=== PATIENT | female | born 1995 | race African-American/Black ===

== ENCOUNTER 2020-03-25 17:11 | Emergency (ER) | payer MEDICAID, SELFPAY ==
--- NOTE | 2020-03-25 | US_ITS ---
EXAMINATION: ULTRASOUND PELVIS, COMPLETE CLINICAL INFORMATION: Lower abdominal pain, worst in the right lower quadrant and suprapubic region. Vaginal bleeding. COMPARISON: None TECHNIQUE: Transabdominal and transvaginal imaging of the pelvis was performed utilizing grayscale and color Doppler technique with spectral analysis. FINDINGS: Uterus normal in size measuring 8.5 x 4.7 x 6.2 cm. Interstitial signature is 0.4 cm and homogeneous. There is a 1.3 x 1.2 x 1 cm fibroid within the anterior uterine fundus. Ovaries normal in size and appearance measuring 3.2 x 2.5 x 2.7 cm on the right 3.4 x 2.8 x 2.4 cm on the left. Physiologic follicles present bilaterally, with a 1.6 cm follicle within the left ovary. Normal internal venous waveforms present within each ovary. US/US transvaginal IMPRESSION: No evidence of ovarian torsion. Unremarkable sonographic survey ovaries. Single 1.2 cm anterior uterine fundal fibroid. Endometrial signature is normal in appearance.
[2020-03-25 20:04] VITALS: BP 144/82; PULSE 72; RESP 15; TEMP 36.6; O2SAT 99; BMI 44.7
[2020-03-25 20:34] LABS: MANUAL DIFF FLAG NO
[2020-03-25 20:36] LABS: Basophils Percent Auto 0.4 % (0-2); Eosinophils Absolute Auto 0.2 X10*3/uL (0.0-0.4); Eosinophils Percent Auto 1.9 % (0-4); Hematocrit 38.1 % (37-47); Hemoglobin 12.2 g/dl (12.0-16.0); Imm Gran Abs Auto 0.03 X10*3/uL (0.00-0.03); Imm Gran Pct Auto 0.3 % (0.0-0.4); Lymphocytes Absolute Auto 3.4 X10*3/uL (1.2-4.9); Lymphocytes Percent Auto 34.3 % (20-40); Mean Corpuscular Hemoglobin 31.7 pg (27.0-33.0); Mean Platelet Volume 10.9 fL (9.4-12.3); Monocytes Absolute Auto 0.7 X10*3/uL (0.1-1.2); Monocytes Percent Auto 7.1 % (2-11); Neutrophils Absolute Auto 5.5 X10*3/uL (2.0-8.3); Platelet Count 369 X10*3/uL (160-400); Red Blood Count 3.85 X10*6/uL (4.20-5.50); Red Cell Distribution Width 11.6 % (11.0-16.0); White Blood Count 9.8 X10*3/uL (4.8-10.8)
[2020-03-25 20:45] LABS: Appearance Urine HAZY; Color Urine YELLOW; Glucose Urine UA NEG (NEG); Leukocyte Esterase Urine NEG (NEG); Nitrite Urine NEG (NEG); PH 5.5 (5.0-8.0); Specific Gravity - Urine 1.025 (1.005-1.025); Urine Blood 3+ (NEG); Urine Ketones NEG (NEG); Urine Protein TRACE MG/DL (NEG-TRACE)
[2020-03-25 20:51] LABS: RBC Urine TNTC /HPF (0); Squamous Epithelial Cell Urine 3+ /LPF; WBC Urine 0-2 /HPF (0-4)
[2020-03-25 20:55] LABS: Anion Gap 14 (12-20); Blood Urea Nitrogen 11 mg/dL (9-16); Calcium 9.2 mg/dL (8.4-10.2); Carbon Dioxide 26 mmol/L (22-29); Chloride 104 mmol/L (96-108); Creatinine Clr Calc Pharmacy 184.5; Estimated Glomerular Filt Rate > 60; Glucose Random 89 mg/dL (60-115); Potassium 4.5 mmol/l (3.3-5.1); Sodium 139 mmol/L (135-145)
[2020-03-25 20:56] VITALS: BP 118/53; PULSE 69; RESP 16; O2SAT 100
--- NOTE | 2020-03-25 21:01 | US_ITS ---
EXAMINATION: ULTRASOUND PELVIS, COMPLETE CLINICAL INFORMATION: Lower abdominal pain, worst in the right lower quadrant and suprapubic region. Vaginal bleeding. COMPARISON: None TECHNIQUE: Transabdominal and transvaginal imaging of the pelvis was performed utilizing grayscale and color Doppler technique with spectral analysis. FINDINGS: Uterus normal in size measuring 8.5 x 4.7 x 6.2 cm. Interstitial signature is 0.4 cm and homogeneous. There is a 1.3 x 1.2 x 1 cm fibroid within the anterior uterine fundus. Ovaries normal in size and appearance measuring 3.2 x 2.5 x 2.7 cm on the right 3.4 x 2.8 x 2.4 cm on the left. Physiologic follicles present bilaterally, with a 1.6 cm follicle within the left ovary. Normal internal venous waveforms present within each ovary. US/US pelvic complete IMPRESSION: No evidence of ovarian torsion. Unremarkable sonographic survey ovaries. Single 1.2 cm anterior uterine fundal fibroid. Endometrial signature is normal in appearance.
[2020-03-25 21:02] LABS: HCG Quantitative < 2 mIU/mL
--- NOTE | 2020-03-25 21:08 | ED_ITS ---
HPI - Female Genitourinary General Chief complaint: Vaginal Bleeding Stated complaint: Vaginal bleeding Time Seen by Provider: 03/25/20 17:18 Source: patient Mode of arrival: ambulatory History of Present Illness HPI Narrative: 25-year-old female with a past medical history of anemia, borderline diabetes, presenting to the ED complaining of heavy vaginal bleeding with clots x3 days. Reports associated lower abdominal/pelvic pain, lighth eadedness, and vaginal discharge. Is sexually active with 1 partner, denies concern for STIs. Denies taking anticoagulation. Denies nausea, vomiting, diarrhea, CP/SOB. LMP unknown as had Nexplanon removed in 2019 and irregular periods since MD elicited complaint: vaginal bleeding, vaginal discharge and pelvic pain Related Data Allergies Allergy/AdvReac Type Severity Reaction Status Date / Time bee pollen [BEE STINGS] Allergy Severe ANAPHYLAXIS Verified 03/25/20 20:20 poison oak extract Allergy Intermediate HIVES Verified 03/25/20 20:20 [POISON OAK] bee sting Allergy Unknown Anaphylaxis Uncoded 03/25/20 20:20 Review of Systems Review of Systems: Constitutional: No Weight loss, No Fever, No Chills, +Fati sammi, No Malaise Cardiovascular: No Chest Pain, No SOB Respiratory: No Cough, No Sputum Gastrointestinal: No Nausea, No Vomiting, No Diarrhea, No Constipation, + Abdominal pain Genitourinary: + irregular vaginal bleeding, No Dysuria, No Urinary Frequency, No Hematuria, +vaginal discharge Musculoskeletal: No joint pain, No Myalgias, No Joint Swelling Skin: No Skin Lesions, No rash Neuro: +lightheadedness Yes all other systems are reviewed and are negative PMFSH Past Medical History Attestation statement: The following information was validated with the patient. Medical History (Updated 03/25/20 @ 23:06 by HEMA Lara) Anemia Borderline diabetes Social History Social History Alcohol intake: never Smoking Status: Never smoker Use of substances other than those prescribed or required for medical reasons: No Advance Directives: No Advance Directives Information Provided: No Physical Exam Vital Signs: Vital Signs: Last Vital Signs Temp 98 F 03/25/20 20:04 Pulse 69 03/25/20 20:56 Resp 16 03/25/20 20:56 BP 118/53 L 03/25/20 20:56 Pulse Ox 100 03/25/20 20:56 Body Mass Index 44.7 Const: General: cooperative and healthy appearing Orientation/consciousness: patient oriented x3 Limitations: no limitations HENMT: Head: Yes normal to inspection Ears: hearing grossly normal bilaterally General nose exam: Normal external nose present Face and sinus: Yes normal facial exam Eyes: General: appearance normal, both eyes and all related structures EOM: EOMs intact bilaterally Neck: Neck: Yes normal visual inspection and Yes no meningeal signs Resp: Effort & Inspection: normal respiratory effort Auscultation: clear to auscultation bilaterally, no rales, no rhonchi and no wheezes Cardio: Rate: regular rate Heart sounds: S1 normal heart sound present and S2 normal heart sound present GI: Inspection: Yes normal to inspection Palpation (GI): Soft to palpation, Tenderness to palpation present (GI) (suprapubic and R suprapubic region) in the RLQ, no guarding and not rigid : Other: No active hemorrhage, cleared with Q-tip External Female Exam: normal external appearance Speculum Exam - Cervix: Cervical os closed, Abnormal cervical discharge present (via Os) bloody and nontender Bimanual exam- vagina & uterus: No Cervical tenderness present Bimanual Exam- Adnexa, other: no masses and tender on the right Skin: Rashes: no rashes Wounds: no wounds Neuro: General: patient oriented x3, gait normal, tone normal, moves all extremities and no meningeal signs Gait exam (Neuro): Normal gait present Extrem: General: Yes normal to inspection Course Course Course Narrative: * H/H stable, HCG negative, labs otherwise unremarkable * UA w/blood not infected US pelvic complete IMPRESSION: No evidence of ovarian torsion. Unremarkable sonographic survey ovaries. Single 1.2 cm anterior uterine fundal fibroid. Endometrial signature is normal in appearance. * results discussed with patient, vital signs remain stable, she is nontoxic appearing. Appendicitis unlikely. Strict return precautions and worrisome signs and symptoms discussed. She verbalized understanding and feels safe for discharge. Believes she can get follow-up with her OBGYN this week MDM - Female Genitourinary MDM Narrative Medical decision making narrative: 25-year-old female with a past medical hist ory of anemia, borderline diabetes, presenting to the ED complaining of heavy vaginal bleeding with clots x3 days. Reports associated lower abdominal/pelvic pain, lightheadedness, and vaginal discharge. On exam VSS, NAD/nontoxic appearing, abdomen soft with RLQ/right suprapubic/lower abdominal tenderness, vaginal bleeding noted on pelvic with right adnexal tenderness. Concern for ectopic vs ovarian cyst/torsion. Appendicitis lower on ddx. Low concern for renal stone. Rule out UTI Plan: Labs, UA, , transvaginal ultrasound, reassess Lab Data Result diagrams: 03/25/20 20:24 03/25/20 20:24 Labs: Lab Results 03/25/20 03/25/20 03/25/20 Range/Units 20:18 20:24 20:24 WBC 9.8 (4.8-10.8) X10*3/uL RBC 3.85 L (4.20-5.50) X10*6/uL Hgb 12.2 (12.0-16.0) g/dl Hct 38.1 (37-47) % MCV 99.0 H (80-98) fL MCH 31.7 (27.0-33.0) pg MCHC 32.0 (31.0-35.0) g/dl RDW 11.6 (11.0-16.0) % Plt Count 369 (160-400) X10*3/uL MPV 10.9 (9.4-12.3) fL Immature Gran % (Auto) 0.3 (0.0-0.4) % Neut % (Auto) 56.0 (45-73) % Lymph % (Auto) 34.3 (20-40) % Pettis % (Auto) 7.1 (2-11) % Eos % (Auto) 1.9 (0-4) % Baso % (Auto) 0.4 (0-2) % Lymph # (Auto) 3.4 (1.2-4.9) X10*3/uL Pettis # (Auto) 0.7 (0.1-1.2) X10*3/uL Eos # (Auto) 0.2 (0.0-0.4) X10*3/uL Baso # (Auto) 0.0 (0.0-0.2) X10*3/uL Abs Immat Gran (auto) 0.03 (0.00-0.03) X10*3/uL Absolute Neuts (auto) 5.5 (2.0-8.3) X10*3/uL Absolute Nucleated RBC 0.000 (0.0-0.012) X10*3/uL Nucleated RBC % (auto) 0.0 (0.0-0.2) /100WBC Hold Blue Top SEE NOTE Sodium (135-145) mmol/L Potassium (3.3-5.1) mmol/l Chloride (96-108) mmol/L Carbon Dioxide (22-29) mmol/L Anion Gap (12-20) BUN (9-16) mg/dL Creatinine (0.5-1.4) mg/dL Estim Creat Clear Calc Estimated GFR Random Glucose (60-115) mg/dL Calcium (8.4-10.2) mg/dL Total Bilirubin (0.0-1.0) mg/dL Direct Bilirubin (0.0-0.5) mg/dL AST (5-31) U/L ALT (0-31) U/L Alkaline Phosphatase (39-117) U/L Total Protein (6.5-8.0) g/dL Albumin (3.5-5.0) g/dL Lipase (8-78) U/L Beta HCG, Quant mIU/mL Urine Color Urine Appearance Urine pH (5.0-8.0) Ur Specific [place] (1.005-1.025) Urine Protein (NEG-TRACE) MG/DL Urine Glucose (UA) (NEG) MG/DL Urine Ketones (NEG) MG/DL Urine Blood (NEG) Urine Nitrite (NEG) Ur Leukocyte Esterase (NEG) Urine RBC (0) /HPF Urine WBC (0-4) /HPF Ur Squamous Epith Cells /LPF Urine Bacteria /LPF Blood Type A Positive 03/25/20 03/25/20 Range/Units 20:24 20:24 WBC (4.8-10.8) X10*3/uL RBC (4.20-5.50) X10*6/uL Hgb (12.0-16.0) g/dl Hct (37-47) % MCV (80-98) fL MCH (27.0-33.0) pg MCHC (31.0-35.0) g/dl RDW (11.0-16.0) % Plt Count (160-400) X10*3/uL MPV (9.4-12.3) fL Immature Gran % (Auto) (0.0-0.4) % Neut % (Auto) (45-73) % Lymph % (Auto) (20-40) % Pettis % (Auto) (2-11) % Eos % (Auto) (0-4) % Baso % (Auto) (0-2) % Lymph # (Auto) (1.2-4.9) X10*3/uL Pettis # (Auto) (0.1-1.2) X10*3/uL Eos # (Auto) (0.0-0.4) X10*3/uL Baso # (Auto) (0.0-0.2) X10*3/uL Abs Immat Gran (auto) (0.00-0.03) X10*3/uL Absolute Neuts (auto) (2.0-8.3) X10*3/uL Absolute Nucleated RBC (0.0-0.012) X10*3/uL Nucleated RBC % (auto) (0.0-0.2) /100WBC Hold Blue Top Sodium 139 (135-145) mmol/L Potassium 4.5 (3.3-5.1) mmol/l Chloride 104 (96-108) mmol/L Carbon Dioxide 26 (22-29) mmol/L Anion Gap 14 (12-20) BUN 11 (9-16) mg/dL Creatinine 0.75 (0.5-1.4) mg/dL Estim Creat Clear Calc 184.5 Estimated GFR > 60 Random Glucose 89 (60-115) mg/dL Calcium 9.2 (8.4-10.2) mg/dL Total Bilirubin 0.5 (0.0-1.0) mg/dL Direct Bilirubin 0.2 (0.0-0.5) mg/dL AST 16 (5-31) U/L ALT 21 (0-31) U/L Alkaline Phosphatase 85 (39-117) U/L Total Protein 8.0 (6.5-8.0) g/dL Albumin 4.5 (3.5-5.0) g/dL Lipase 25 (8-78) U/L Beta HCG, Quant < 2 mIU/mL Urine Color YELLOW Urine Appearance HAZY Urine pH 5.5 (5.0-8.0) Ur Specific [place] 1.025 (1.005-1.025) Urine Protein TRACE (NEG-TRACE) MG/DL Urine Glucose (UA) NEG (NEG) MG/DL Urine Ketones NEG (NEG) MG/DL Urine Blood 3+ H (NEG) Urine Nitrite NEG (NEG) Ur Leukocyte Esterase NEG (NEG) Urine RBC TNTC H (0) /HPF Urine WBC 0-2 (0-4) /HPF Ur Squamous Epith Cells 3+ /LPF Urine Bacteria NONE /LPF Blood Type Discharge Plan Discharge Clinical Impression: Vaginal bleeding Patient Disposition: Home, Self-Care Instructions: Dysfunctional Uterine Bleeding (ED) Additional Instructions: Your blood work was reassuring today in the emergency department Your ultrasound did not show any concerning signs, you do have a small uterine fibroid Make sure you are staying hydrated at home If bleeding persists, worsens, you have constant or unremitting abdominal pain, developed nausea/vomiting, or fever return to the ED immediately You should follow-up with her OBGYN this week Referrals: Terrance Good MD [Physician] - 2 days
[2020-03-25 21:53] LABS: Alanine Aminotransferase 21 U/L (0-31); Albumin Level 4.5 g/dL (3.5-5.0); Alkaline Phosphatase 85 U/L (39-117); Aspartate Amino Transferase 16 U/L (5-31); Bilirubin Direct 0.2 mg/dL (0.0-0.5); Bilirubin Total 0.5 mg/dL (0.0-1.0); Lipase 25 U/L (8-78)
[2020-03-25] MEDS: Morphine Sulfate 2 MG/ML CARTRIDGE IVPUSH (22:32)
[2020-03-25] MEDS: 0.9 % Sodium Chloride 1,000 ML 999 ML IVCONT (22:32)
[2020-04-01 10:45] LABS: CT PCR NOT DETECTED (Not Detect.); NG PCR NOT DETECTED (Not Detect.)
== END 2020-03-25 23:32 | disposition home or self-care (01) ==
PROVIDERS: Emergency Medicine; Physician Assistant; Emergency Provider Internal Medicine
DX: N93.9 Abnormal uterine and vaginal bleeding, unspecified (principal); R10.2 Pelvic and perineal pain
CPT/HCPCS: 36415; 76830; 76856; 80048; 80076; 81001; 83690; 84702; 85025; 86900; 86901; 87480; 87491; 87510; 87591; 87660; 96361; 96374; 99284; J2270

== ENCOUNTER 2020-04-26 10:25 | Outpatient (REF) | payer MEDICAID, SELFPAY ==
[2020-04-26 13:30] LABS: Thyroid Stimulating Hormone 1.28 uIU/mL (0.32-4.0)
[2020-04-27 09:14] LABS: BV Int Neg Control Negative (Negative); BV Int Pos Control Positive (Positive)
[2020-04-27 18:23] LABS: DHEA Sulfate 201 mcg/dL (18-391)
[2020-04-27 18:47] LABS: Prolactin 11.9 ng/mL
[2020-05-02 11:07] LABS: Testosterone, Free 3.8 pg/mL (0.1-6.4); Testosterone, Total 27 ng/dL (2-45)
== END 2020-04-26 10:26 | disposition home or self-care (01) ==
LOC: HO.LAB 10:25
PROVIDERS: Visit Provider Advanced Practice Midwife
DX: N94.6 Dysmenorrhea, unspecified (principal); N92.0 Excessive and frequent menstruation with regular cycle; L68.0 Hirsutism; E66.8 Other obesity; Z68.42 Body mass index [BMI] 45.0-49.9, adult
CPT/HCPCS: 36415; 81025; 82627; 83498; 84146; 84402; 84403; 84443; 87480; 87510; 87660; 99202

== ENCOUNTER → 2020-05-10 12:30 | Outpatient (BNVA) | payer MEDICAID, SELFPAY | PROVIDERS: Visit Provider Advanced Practice Midwife ==

== ENCOUNTER 2021-03-21 11:38 | Outpatient (REF) | payer MEDICAID, SELFPAY | END 2021-03-21 11:39 | disposition home or self-care (01) | LOC: HO.WFDLDS 11:38 | PROVIDERS: Visit Provider Internal Medicine | DX: Z20.822 Contact with and (suspected) exposure to COVID-19 (principal) | CPT/HCPCS: C9803; U0003; U0005 ==

== ENCOUNTER 2023-03-03 15:45 | Outpatient (REF) | payer MEDICAID, SELFPAY ==
--- NOTE | ~2023-03-03 | XR_ITS ---
EXAMINATION: XR CHEST CLINICAL INFORMATION: Cough. COMPARISON: 11/13/2018. TECHNIQUE: 2 views of the chest were obtained. FINDINGS: No significant abnormality is noted involving the heart, lungs, mediastinum, bony thorax or soft tissues. XR/XR chest 2V IMPRESSION: Unremarkable examination.
== END 2023-03-03 15:46 | disposition home or self-care (01) ==
LOC: HO.HHCX 15:45
PROVIDERS: Visit Provider Internal Medicine
DX: R05.1 Acute cough (principal)
CPT/HCPCS: 71046

== ENCOUNTER 2023-12-18 13:27 | Emergency (ER) | payer OTHER, MEDICAID, SELFPAY ==
--- NOTE | ~2023-12-18 | XR_ITS ---
EXAMINATION: XR LUMBOSACRAL SPINE CLINICAL INFORMATION: Left ankle injury. Back pain. COMPARISON: None available. TECHNIQUE: Three views of the lumbosacral spine. FINDINGS: The vertebral bodies and posterior elements are normal. The disc spaces are preserved and the vertebral alignment is normal. The paraspinal soft tissues are normal. XR/XR lumbar spine 2-3V IMPRESSION: No acute osseous lumbar spine abnormality. Electronically signed by: Walter Contreras DO 12/18/2023 06:44 PM EDT
[2023-12-18 13:47] VITALS: BP 141/90; PULSE 76; RESP 20; TEMP 36.7; O2SAT 99; BMI 49.3
--- NOTE | 2023-12-18 16:24 | ED.BACK ---
HPI - Back Pain/Injury General Chief Complaint: Back Pain/Injury Stated Complaint: back inj @ work Time Seen by Provider: 12/18/23 16:07 Source: patient Limitations: no limitations History of Present Illness HPI Narrative: Patient is a 28-year-old female who presents emergency department for evaluation of a work-related injury. She works at [employer]. She reports on Thursday12/15/2023 she was moving some folded boxes, placing them from 1 area to another. She reports that she was very mindful to use good body mechanics bending down with her legs before lifting and placing them where they needed to go. She states approximately 20 or 30 minutes later she noticed she was developing pain diffusely throughout her lower back and a sharp burning pain to her left lower back that began radiating down her buttock and into her thigh. She has been taking extra-strength Tylenol at home without much improvement. Reports she last took this today at 11:00.Denies fevers, chills, burning with micturition, urinary frequency/urgency/hesitancy, bladder or bowel dysfunction, numbness or tingling of the perineum or bilateral legs. Denies any recent surgical procedures, any known immune compromising conditions, personal history of cancer, or IV drug usage. MD elicited complaint: back pain Related Data Previous Rx's ?Medication ?Instructions ?Recorded vitamin with calcium 1 tab PO BEDTIME #30 tabs 05/10/20 no.72-iron 27 mg-folic acid 1 mg tablet ( Vitamins Plus Low Iron) cyclobenzaprine 10 mg tablet 10 mg PO TID PRN muscle spasm #14 12/18/23 tabs Allergies Allergy/AdvReac Type Severity Reaction Status Date / Time bee pollen [BEE STINGS] Allergy Severe ANAPHYLAXIS Verified 12/18/23 13:51 poison oak extract Allergy Intermediate HIVES Verified 12/18/23 13:51 [POISON OAK] bee sting Allergy Unknown Anaphylaxis Uncoded 03/25/20 20:20 Review of Systems Review of Systems: Yes all other systems are reviewed and are negative PMFSH Past Medical History Attestation statement: The following information was validated with the patient. Source: old records reviewed Medical History H/O drainage of abscess Borderline diabetes Anemia Family History Family History Maternal Grandmother Breast cancer Paternal Grandmother Lung cancer Mother Ovarian cancer Father Diabetes mellitus Social History Social History Alcohol intake: never Advance Directives: No Advance Directives Information Provided: No Do you have a plan to hurt others: No Plan Gender identity: Female Physical Exam Vital Signs: Vital Signs: Last Vital Signs Temp 98.1 F 12/18/23 13:47 Pulse 76 12/18/23 13:47 Resp 20 12/18/23 13:47 BP 141/90 H 12/18/23 13:47 Pulse Ox 99 12/18/23 13:47 O2 Del Method Room Air 12/18/23 13:47 BMI result Body Mass Index 49.3 Appearance: Alert.?Oriented to person, place and time. No acute distress.?Normal affect. Eyes: Pupils equal, round and reactive to light.? ENT: Pharynx normal.?? Neck: Normal inspection.? Neck supple.?? CVS: Heart sounds normal. Normal heart rate and rhythm.? Pulses normal; bilateral radial pulses 2+, bilateral posterior tibial/dorsalis pedis pulses 2+.? Respiratory: No respiratory distress.? Lung sounds clear to auscultation bilaterally?? Abdomen: Soft and non-tender. Normoactive bowel sounds. No pulsatile mass.?? Skin: Skin warm and dry.? Normal skin color.? Normal skin turgor.?? Extremities: No lower extremity edema.? No calf ttp? Back: + moderate paraspinal muscular tenderness from lumbar region to coccyx bilaterally. No CVA tenderness. No midline spinal tenderness, step-off's, or deformity. Full ROM intact in bilateral lower extremities. Straight leg test positive on right; Straight leg test negative on left. No rashes, lesions, areas of induration or fluctuance, or signs of infection noted., Neuro: Moves all extremities spontaneously. 5/5 strength in hip extension/flexion, abduction, adduction. Sensation to light touch intact bilaterally. Patellar and Achilles reflex 2+ bilaterally. No ataxia, gait normal and steady.. No focal neuro deficits. Medications Administered Discontinued Medications Generic Name Dose Route Start Last Admin Trade Name Freq PRN Reason Stop Dose Admin Ketorolac Tromethamine 15 mg 12/18/23 16:53 12/18/23 16:57 Ketorolac Tromethamine 15 Mg/Ml Vial IM 12/18/23 16:54 15 mg ONCE ONE Administration Medical Decision Making Medical Decision Making [facility] Narrative: Patient is a 28-year-old female past medical history of anemia, glucose intolerance presenting to emergency department for evaluation of lower back pain radiating to the right lower extremity as per HPI. Overall she appears well, nontoxic, afebrile. She is ambulatory with a steady gait. Pain is most consistent with lumbar radiculopathy, musculoskeletal pain, although cannot completely exclude herniated disc. On neurological exam there are no deficits. Not consistent with spinal fracture, spinal infection, epidural abscess, AAA, epidural abscess, or dissection. No high risk past medical history including incontinence, fever, immunosuppression, recent surgery or lumbar puncture, coagulopathy, significant trauma, recent unintentional weight loss, pulsatile mass, history of cancer, history of TB, history of IV drug use that would warrant MRI or CT. Not consistent with ectopic , pyelonephritis, urinary tract infection, renal calculi, pelvic infection, appendicitis, diverticulitis. On exam no concern for cauda equina syndrome. Plan for discharge home with prescription for cyclobenzaprine to take pain is relieved by acetaminophen/ibuprofen, reviewed conservative treatment,, and follow-up with primary care provider, and patient agreed with plan. Differential Diagnosis Differential Diagnoses: The differential diagnosis associated with the presentation includes ( see narrative above) Admission/Observation Consideration of admission/observation: Escalation of care including admission/observation considered ( see narrative above) Independent Interpretation I performed an independent interpretation of an: Plain X-Ray (No acute fracture) Radiology Impression Discussion of test interpretation with radiology: I have reviewed the radiologist's reading. Radiologist Impression: XR/XR lumbar spine 2-3V IMPRESSION: No acute osseous lumbar spine abnormality. Prescription Management I considered prescription management with: Pain Medication Discharge Plan Discharge Clinical Impression: Strain of lumbar region, Lumbar radiculopathy Patient Disposition: Home, Self-Care Instructions: Low Back Strain (ED), Lumbar Radiculopathy (ED), R.I.C.E. Treatment (ED) Additional Instructions: Your x-ray today was normal. You can take ibuprofen 200 mg, 3 tablets (600mg) every 6-8 hours as needed for pain, in addition to Tylenol 500 mg, 2 tablets (1,000mg) every 4-6 hours as needed for pain, but not to exceed 3 doses daily (3,000mg).? Her pain that is not relieved by ibuprofen/Tylenol. You may take cyclobenzaprine, this is a muscle relaxer and a prescription was sent to your pharmacy. This medication may make you drowsy. You should not drive, drink alcohol, or work while taking this medication. As discussed, given this is a work-related injury it is important that you speak with your boss as soon as possible to discuss the procedures for workman's comp. Arrange for outpatient follow-up with your primary care doctor. Feel free to return to the emergency department with any new or worsening symptoms or concerns. Prescriptions: New cyclobenzaprine 10 mg tablet 10 mg PO TID PRN (Reason: muscle spasm) Qty: 14 0RF No Action Vitamin Plus Low Iron 27 mg iron- 1 mg tablet 1 tab PO BEDTIME Qty: 30 11RF Rx Instructions: give with food (meal/snack) Referrals: [facility] [Primary Care Provider] - Print Language: Bengali
[2023-12-18] MEDS: Ketorolac Tromethamine 15 MG/ML VIAL IM (16:57)
[2023-12-18 19:06] VITALS: BP 141/90; PULSE 76; RESP 20; TEMP 36.7; O2SAT 99
== END 2023-12-18 19:06 | disposition home or self-care (01) ==
PROVIDERS: Emergency Provider Internal Medicine
DX: S39.012A Strain of muscle, fascia and tendon of lower back, initial encounter (principal); X50.3XXA Overexertion from repetitive movements, initial encounter; M54.16 Radiculopathy, lumbar region; Y93.89 Activity, other specified; Y92.59 Other trade areas as the place of occurrence of the external cause; Y99.0 Civilian activity done for income or pay
CPT/HCPCS: 72100; 96372; 99283; 99284; J1885